=== PATIENT | male | born 1995 | race Hispanic/Latino ===

== ENCOUNTER 2021-12-11 16:01 | Emergency (ER) | payer OTHER ==
[~2021-12-11] VITALS: Ht 175.3 cm; Wt 77.0 kg
[2021-12-11 16:03] VITALS: BP 144/83
[2021-12-11] MEDS ORDERED: RABIES VACCINE HUMAN 2.5 INTERNATIONAL UNITS/ML VIAL (90675) IM ONE (17:15)
[2021-12-11] MEDS ORDERED: RABIES IMMUNE GLOBULIN 1500 INTERNATIONAL UNIT/5ML VIAL (90375) IM ONE (17:15)
[2021-12-11] MEDS ORDERED: AMOX875T2 PO (17:15)
== END 2021-12-11 18:18 | disposition home or self-care (01) ==
LOC: M ED 16:01
DX: S61.252A Open bite of right middle finger without damage to nail, initial encounter (principal); S60.372A Other superficial bite of left thumb, initial encounter; S71.151A Open bite, right thigh, initial encounter; W54.0XXA Bitten by dog, initial encounter; Y92.017 Garden or yard in single-family (private) house as the place of occurrence of the external cause; Y93.K9 Activity, other involving animal care; Y99.8 Other external cause status; F17.220 Nicotine dependence, chewing tobacco, uncomplicated

== ENCOUNTER 2022-02-22 07:21 | Emergency (ER) | payer OTHER ==
[~2022-02-22] VITALS: Ht 175.3 cm; Wt 72.7 kg
[~2022-02-22 07:21] MED LIST: AMOX875T2 PO
[2022-02-22] MEDS ORDERED: CIPROFLOXACIN 500MG TABLET PO ONE (09:25)
[2022-02-22] MEDS ORDERED: CIPR-249 PO (09:29)
[2022-02-22 09:37] VITALS: BP 117/63
== END 2022-02-22 09:39 | disposition home or self-care (01) ==
LOC: M ED 07:21
DX: N50.811 Right testicular pain (principal); N50.89 Other specified disorders of the male genital organs; K40.90 Unilateral inguinal hernia, without obstruction or gangrene, not specified as recurrent